=== PATIENT | female | born 1970 | race Two or more races ===

== ENCOUNTER 2017-10-18 14:43 | Emergency (ER) | payer OTHER ==
[2017-10-18] MEDS ORDERED: KETOROLAC TROMETHAMINE INJ/PF 30 MG/1 ML SDV IM ONE (16:00)
--- NOTE | 2017-10-18 16:27 | RADIOLOGY REPORT (SQ) ---
EXAM DESCRIPTION: SHOULDER RIGHT 2 OR MORE VIEWS COMPLETED DATE/TIME: 10/18/2017 4:20 pm REASON FOR STUDY: pain injury COMPARISON: None. NUMBER OF VIEWS: Three views. TECHNIQUE: Internal rotation, external rotation, and Y view images acquired of the right shoulder. LIMITATIONS: None. FINDINGS: MINERALIZATION: Normal. BONES: No acute fracture or dislocation. No worrisome bone lesions. JOINTS: No dislocation. VISUALIZED LUNGS AND RIBS: No pneumothorax. No rib fracture. SOFT TISSUES: No radiopaque foreign body. OTHER: No other significant finding. IMPRESSION: NEGATIVE STUDY OF THE RIGHT SHOULDER. NO RADIOGRAPHIC EVIDENCE OF ACUTE INJURY. TECHNICAL DOCUMENTATION: JOB ID: [id number] [employer]- All Rights Reserved Reading location - IP/workstation name: [email or web address]
--- NOTE | 2017-10-18 16:28 | RADIOLOGY REPORT (SQ) ---
EXAM DESCRIPTION: KNEE RIGHT 4 VIEWS COMPLETED DATE/TIME: 10/18/2017 4:20 pm REASON FOR STUDY: pain injury COMPARISON: None. NUMBER OF VIEWS: Four views. TECHNIQUE: AP, lateral, and both oblique radiographic images acquired of the right knee. LIMITATIONS: None. FINDINGS: MINERALIZATION: Normal. BONES: No acute fracture or dislocation. No worrisome bone lesions. JOINT: No effusion. SOFT TISSUES: No soft tissue swelling. No radio-opaque foreign body. OTHER: No other significant finding. IMPRESSION: NEGATIVE STUDY OF THE RIGHT KNEE. NO RADIOGRAPHIC EVIDENCE OF ACUTE INJURY. TECHNICAL DOCUMENTATION: JOB ID: [id number] [employer]- All Rights Reserved Reading location - IP/workstation name: [email or web address]
--- NOTE | 2017-10-18 17:15 | ER Document Report ---
ED General - General Chief Complaint: Knee Pain Stated Complaint: SHOULDER KNEE PAIN Time Seen by Provider: 10/18/17 15:40 Mode of Arrival: Ambulatory Information source: Patient Notes: 47-year-old female presented ED for complaint of right shoulder and knee pain 2 months. She states she sleeps on her right side and the pain continues. She states she had pain similar to this about a year ago and she never did follow- up with anyone. Patient is alert and oriented respirations regular unlabored speaking in full sentences and is ambulate with steady gait. Patient states she has a new primary care doctor but she is not able to see this doctor for about 2 months. TRAVEL OUTSIDE OF THE [place] IN LAST 30 DAYS: No - HPI Onset: Other Onset/Duration: Intermittent - 2 months Quality of pain: Achy, Sharp Severity: Moderate Pain Level: 3 Associated symptoms: Other - Right shoulder knee pain for the last 2 months slowly increasing. Exacerbated by: Movement, Walking Relieved by: Denies Similar symptoms previously: Yes Recently seen / treated by doctor: No - Related Data Allergies/Adverse Reactions: No Known Allergies Allergy (Unverified 10/18/17 14:45) Past Medical History - General Information source: Patient - Social History Smoking Status: Never Smoker Cigarette use (# per day): No Chew tobacco use (# tins/day): No Smoking Education Provided: No Frequency of alcohol use: None Drug Abuse: None Lives with: Family Family History: Reviewed & Not Pertinent Patient has suicidal ideation: No Patient has homicidal ideation: No - Past Medical History Cardiac Medical History: Reports: None Pulmonary Medical History: Reports: None EENT Medical History: Reports: None Neurological Medical History: Reports: None Endocrine Medical History: Reports: None Renal/ Medical History: Reports: None Malignancy Medical History: Reports: None GI Medical History: Reports: None Musculoskeltal Medical History: Reports Hx Musculoskeletal Deformity, Reports Hx Musculoskeletal Trauma Skin Medical History: Reports None Psychiatric Medical History: Reports: None Traumatic Medical History: Reports: None Infectious Medical History: Reports: None Surgical Hx: Negative Past Surgical History: Reports: None Review of Systems - Review of Systems Constitutional: No symptoms reported EENT: No symptoms reported Cardiovascular: No symptoms reported Respiratory: No symptoms reported Gastrointestinal: No symptoms reported Genitourinary: No symptoms reported Female Genitourinary: No symptoms reported Musculoskeletal: Joint pain - Right knee and shoulder, Muscle pain, Muscle stiffness Skin: No symptoms reported Hematologic/Lymphatic: No symptoms reported Neurological/Psychological: No symptoms reported -: Yes All other systems reviewed and negative Physical Exam - Vital signs Vitals: Temp Pulse Resp BP Pulse Ox 98.9 F 75 16 126/87 H 98 10/18/17 14:47 10/18/17 14:47 10/18/17 14:47 10/18/17 14:47 10/18/17 14:47 Interpretation: Normal - General General appearance: Appears well, Alert - HEENT Head: Normocephalic, Atraumatic Eyes: Normal Pupils: PERRL - Respiratory Respiratory status: No respiratory distress Chest status: Nontender Breath sounds: Normal Chest palpation: Normal - Cardiovascular Rhythm: Regular Heart sounds: Normal auscultation Murmur: No - Abdominal Inspection: Normal Distension: No distension Bowel sounds: Normal Tenderness: Nontender Organomegaly: No organomegaly - Back Back: Normal, Nontender - Extremities General upper extremity: Normal inspection, Normal color, Normal temperature General lower extremity: Normal inspection, Normal color, Normal temperature, Normal weight bearing. No: Lola's sign Shoulder: Tender - Due to pain anterior and posterior shoulder, Limited ROM. No : Abrasion, Deformity, Dislocation, Ecchymosis, Instability, Laceration Arm: Tender. No: Abrasion, Deformity, Ecchymosis, Instability, Laceration Knee: Tender, Pain with ROM, Patellar tendon intact, Tender joint line. No: Deformity, Dislocation, Drawer's test instability, Ecchymosis, Instability, Joint effusion, Laceration, Laxity with valgus stress, Laxity with varus stress , Popliteal fossa tender, Unable to bear weight - Neurological Neuro grossly intact: Yes Cognition: Normal Orientation: AAOx4 Milagro Coma Scale Eye Opening: Spontaneous Milagro Coma Scale Verbal: Oriented Milagro Coma Scale Motor: Obeys Commands Milagro Coma Scale Total: 15 Speech: Normal Motor strength normal: LUE, RUE, LLE, RLE Sensory: Normal - Psychological Associated symptoms: Normal affect, Normal mood - Skin Skin Temperature: Warm Skin Moisture: Dry Skin Color: Normal Course - Re-evaluation Re-evalutation: 10/18/17 21:57 Trace discussed with patient and written report of x-rays given to patient. Patient was offered a sling and an Nathan wrap for her knee. Patient states she did not need either these that she had them at home. Patient was instructed to follow-up with her primary doctor and orthopedic doctor. Patient states she cannot follow up with her primary doctor for at least 2 months. Patient was instructed to call her provider and see if she can follow-up with orthopedics before the ends as her pain is getting worse in her shoulder and knee. Patient was given instructions on elevation ice ibuprofen and exercise for her shoulder knee. - Vital Signs Vital signs: Temp Pulse Resp BP Pulse Ox 98.7 F 69 16 114/79 97 10/18/17 17:25 10/18/17 17:25 10/18/17 14:47 10/18/17 17:25 10/18/17 17:25 - Diagnostic Test Radiology reviewed: Image reviewed, Reports reviewed Discharge - Discharge Clinical Impression: Right shoulder pain Qualifiers: Chronicity: unspecified Qualified Code(s): M25.511 - Pain in right shoulder Right knee pain Qualifiers: Chronicity: unspecified Qualified Code(s): M25.561 - Pain in right knee Condition: Stable Disposition: HOME, SELF-CARE Instructions: Knee Exercise Program ([facility]), Exercise Program for the Shoulder ( [facility]) Additional Instructions: Shoulder Injury You have injured your shoulder. This usually results from stretching or tearing of the tendons during trauma. Time and protection are required in order to heal properly. Many injuries are quite disabling, and should be taken seriously. Initial treatment includes cold packs and a sling to rest the shoulder. The physician has assessed the seriousness of your injury, and has outlined a treatment plan. Understand that this treatment may change, depending on how you progress. If a re-examination was recommended, it is important that you follow up as instructed. Some shoulder injuries (such as partial tear of the rotator cuff) are only suspected after you've failed to improve. Call us if there's severe pain, numbness, or loss of function. SUSPECTED INTERNAL KNEE INJURY: The examiner of your injured knee suspects an internal injury to the cartilage or internal ligaments. This must be further investigated by an vendor management specialist. The knee should be protected, ice packed, and elevated while awaiting your follow-up exam by the orthopedist. If there is severe swelling, severe pain, or any new symptoms while awaiting your exam, you should call the orthopedist. (If he/she is unavailable, call us or return for re-examination.) ICE & ELEVATION: Apply ice packs frequently against the painful area. Many different schedules are recommended, such as "20 minutes on, 20 minutes off" or "one hour ice, two hours rest." If you need to work, you may need to go longer between ice treatments. You should plan to have the area ice packed AT LEAST one- fourth of the time. The ice should be applied over the wrap, tape, or splint, or over a layer of cloth -- not directly against the skin. Some ice bags have a built-in cloth and can be put directly on the skin. Your injured part should be elevated as much as possible over the next 48 hours. Try to keep the injury above the level of the heart. Avoid use of the injured area. Elevation and rest will decrease the swelling. USE OF GUGA-WRY-EURIBBP IBUPROFEN: Ibuprofen (Advil, Nuprin, Medipren, Motrin IB) is a medication for fever and pain control. In addition, it has anti- inflammatory effects which may be beneficial, especially in the treatment of injuries. It's best to take ibuprofen with food. Persons with ulcer disease or allergy to aspirin should notify their physician of this before taking ibuprofen. Ibuprofen can be given every four to six hours, for a total of four doses daily. Age Pain or fever dose Antiinflammatory dose 6-8 yr 200 mg (1 tab) 200 mg (1 tab) 9-11 yr 200 mg (1 tab) 200-400 mg (1-2 tab) 11-14 yr 200-400 mg (1-2 tab) 400 mg (2 tab) 15-adult 400 mg (2 tab) 600 mg (3 tab) Toradol Injection You have been given an injection of ketorolac tromethamine (Toradol). This is an excellent, safe drug for pain control. It also has potent antiinflammatory action. You should have significant pain relief within about one hour. Toradol is not addicting and is non-sedating. It does not interfere with driving or work. Call or return if you develop itching, hives, shortness of breath, or rash. X-ray to your knee and shoulder do not even want show any radiological injuries. This does not mean there is no injuries to your knee and shoulder this means there is no bony injuries. You will need to follow-up with orthopedics for further testing. You have been given Toradol in the emergency room to me she cannot take anymore ibuprofen, Advil, Motrin for the next 8 hours. You could use Tylenol for the next 8 hours. Please call the and see if you could go to the orthopedic since you have such a long wait before he can go to your primary doctor. FOLLOW-UP CARE: If you have been referred to a physician for follow-up care, call the physician s office for an appointment as you were instructed or within the next two days. If you experience worsening or a significant change in your symptoms, notify the physician immediately or return to the Emergency Department at any time for re-evaluation. Referrals: JAVIER SOTO JR, MD [Primary Care Provider] - Follow up as needed ERNIE ALBERTS MD [ACTIVE STAFF] - Follow up as needed
[2017-10-18 17:45] VITALS: BP 114/79
== END 2017-10-18 17:30 | disposition home or self-care (01) ==
LOC: ER 14:43
DX: M25.561 Pain in right knee (principal); M25.511 Pain in right shoulder
CPT/HCPCS: 99283; 96372; 73564; 73030; J1885

== ENCOUNTER 2019-04-27 18:23 | Emergency (ER) | payer OTHER ==
--- NOTE | 2019-04-27 20:40 | ER Document Report ---
ED Medical Screen (RME) - General Chief Complaint: Leg Pain Stated Complaint: LEFT GROIN/LEG PAIN Time Seen by Provider: 04/27/19 20:31 Primary Care Provider: MAIKOL RODRIGUEZ PA [Primary Care Provider] - Follow up as needed Mode of Arrival: Ambulatory Information source: Patient Notes: Patient reports 2-week history of left lower extremity pain from the groin down to the posterior knee. She reports that she is currently undergoing radiation treatments for her stage 0 breast cancer. She denies any history of DVT or PE although she reports she is concerned that she might have a DVT. She denies any use of oral contraceptives, denies smoking, denies any recent travel. Exam: No obvious unilateral leg swelling although exam limited as patient is in the triage room and closed. I have greeted and performed a rapid initial assessment of this patient. A comprehensive ED assessment and evaluation of the patient, analysis of test results and completion of the medical decision making process will be conducted by additional ED providers. I have specifically instructed the patient or family members with the patient to immediately return to any nursing staff should anything change in the patient's condition or with their chief complaint. TRAVEL OUTSIDE OF THE [place] IN LAST 30 DAYS: No - Related Data Allergies/Adverse Reactions: No Known Allergies Allergy (Unverified 10/18/17 14:45) Past Medical History Musculoskeltal Medical History: Reports Hx Musculoskeletal Deformity, Reports Hx Musculoskeletal Trauma Doctor's Discharge - Discharge Referrals: MAIKOL RODRIGUEZ PA [Primary Care Provider] - Follow up as needed
--- NOTE | 2019-04-27 22:19 | RADIOLOGY REPORT (SQ) ---
EXAM DESCRIPTION: US EXTREMITY VEINS UNILATERAL COMPLETED DATE/TME: 04/27/2019 20:37 CLINICAL HISTORY: 49 years, Female, LLE pain, current radiation treatments COMPARISON: None. TECHNIQUE: Axial 2-D grayscale images of the left lower extremity was acquired. Doppler was utilized. LIMITATIONS: None. FINDINGS: Left common femoral, superficial femoral, femoral, popliteal, posterior tibial, peroneal, greater saphenous, and small saphenous veins demonstrate normal compressibility, phasicity, and augmentation. Superficial soft tissues show no suspicious abnormality. Likewise, limited assessment of the right common femoral vein also demonstrates no suspicious finding. IMPRESSION: No evidence of deep or superficial venous thrombosis within the left lower extremity. copyright 2010 [employer]- All Rights Reserved
== END 2019-04-28 03:53 | disposition left against medical advice (07) ==
LOC: ER 18:23
DX: M79.605 Pain in left leg (principal); C50.919 Malignant neoplasm of unspecified site of unspecified female breast; Z53.20 Procedure and treatment not carried out because of patient's decision for unspecified reasons
CPT/HCPCS: 93971; 99281